=== PATIENT | male | born 1990 | race Caucasian/White ===

== ENCOUNTER → 2021-09-06 | Outpatient (CLI) | payer BC, OTHER ==
--- NOTE | 2021-09-06 12:21 | Diagnostic Imaging Report ---
PROCEDURE: CT urinary tract, rule out kidney stone. TECHNIQUE: Multiple contiguous axial images were obtained through the abdomen and pelvis without the use of intravenous contrast. Auto Exposure Controls were utilized during the CT exam to meet ALARA standards for radiation dose reduction. INDICATION: History of stones. Stiffness in back. Cyst left kidney. EXAMINATION: CT of abdomen and pelvis without contrast 09/06/2021. COMPARISON: None. FINDINGS: There are several nonobstructive stones within the right kidney. There is minimal prominence of the right renal collecting system with a stone in the proximal right ureter measuring 5 mm in size. Remaining ureters unremarkable. There is mild hyperdensity in the dependent aspect of the urinary bladder perhaps recently passed stones. There are no stones in the left kidney. No hydronephrosis on the left. There is a cystic lesion within the mid aspect of the right kidney which is poorly characterized without contrast and somewhat dense for a simple cyst. Other cystic lesions throughout the right kidney also noted. Nonemergent dedicated imaging of the right kidney is recommended for further characterization either CT with contrast or sonography. The remaining abdominal viscera limited due to lack of contrast. The liver and spleen grossly unremarkable. The gallbladder, adrenal glands and pancreas unremarkable. There is no adenopathy. There is no ascites or free air. Appendix is normal. There is no acute osseous abnormality. The lung bases appear clear. IMPRESSION: 1. 5 mm stone in the proximal right ureter with secondary mild prominence of the right renal collecting system. Nephrolithiasis nonobstructive in nature also seen on the right. 2. Multiple hypodensities in the right kidney poorly characterized. See above discussion. 3. Not mentioned in the body of report minimal wall thickening of the urinary bladder is noted which could be due to incomplete distention cystitis not excluded. Correlate clinically. Other incidental findings as described above. Dictated by: Dictated on workstation # [id number]
== END ==
LOC: RAD 11:45
PROVIDERS: ATTEND Nurse Practitioner Family
DX: N20.2 Calculus of kidney with calculus of ureter (principal); N28.1 Cyst of kidney, acquired
CPT/HCPCS: 74176

== ENCOUNTER → 2021-10-02 | Outpatient (CLI) | payer BC ==
[~2021-10-02] MED LIST: CATHETER FLUSH 10 ML SYR IV PRN; HOLD METFORMIN - RECEIVED CONTRAST 20 ML VIAL IV SCH; IOHEXOL 350 MG/ML 100 ML (OMNIPAQUE 350) VIAL IV ONE; NS 100 ML (IVPB) BAG IV ONE
--- NOTE | 2021-10-02 10:10 | Diagnostic Imaging Report ---
EXAMINATION: CT abdomen and pelvis with and without intravenous contrast. TECHNIQUE: Precontrast acquisitions were acquired through the abdomen and pelvis. Multiple contiguous axial images were obtained through the abdomen and pelvis after the administration of intravenous contrast. All CT scans use one or more of the following dose optimizing techniques: automated exposure control, MA and/or KvP adjustment based on patient size and exam type or iterative reconstruction. HISTORY: Followup renal cysts. COMPARISON: 09/06/2021. FINDINGS: The heart is unremarkable. The included lung bases are clear. Stable nonobstructing calculi in the right kidney measuring up to 0.5 cm. No obstructing calculi or hydronephrosis. Multiple renal cysts are again seen in both kidneys with 7 identified cysts in the right kidney and 5 cysts in the left kidney. The largest cyst in the right kidney measures 2.7 x 2.1 cm and the largest in the left kidney measures 1.1 x 0.9 cm. There is a somewhat irregular contour of the largest cyst on the right with suggestion of a somewhat thickened wall. No definite solid enhancing component is seen. No perinephric fat stranding is seen. The urinary bladder is mildly distended with concentric bladder wall thickening. No bladder calculi are seen. The liver, spleen, pancreas, and adrenal glands have a normal appearance. There is no pathologically enlarged mesenteric or retroperitoneal adenopathy. The bowel loops are nondilated. There is no free fluid or free air. No acute osseous abnormalities. There is no free air, loculated collection, or adenopathy in the pelvis. IMPRESSION: 1. Multicystic appearance of both kidneys. Given the patient age and number of cysts, this raises the possibility of autosomal dominant polycystic kidney disease. Consider genetic counseling to further evaluate. 2. The largest cyst in the right kidney demonstrates somewhat irregular contours with thickened wall; however, given the completely intrarenal appearance, this is suboptimally evaluated. No definite solid enhancing components are seen. This is most consistent with a Bosniak 2F cyst and followup is recommended in 6 months with renal ultrasound or repeat CT of the abdomen. 3. Stable nonobstructing calculi in the right kidney. No hydronephrosis. Dictated by: Dictated on workstation # [id number]
== END ==
LOC: RAD 08:45
PROVIDERS: ATTEND Urology
DX: N20.2 Calculus of kidney with calculus of ureter (principal); N28.1 Cyst of kidney, acquired
CPT/HCPCS: 74178